=== PATIENT | male | born 1980 | race Hispanic/Latino ===

== ENCOUNTER 2017-05-01 19:04 | Inpatient (IN) ==
[2017-05-01] MEDS ORDERED: MORPHINE IV ONE (20:07)
[2017-05-01] MEDS ORDERED: ZOFRAN IV ONE (20:08)
[2017-05-01] MEDS ORDERED: TORADOL IV ONE (20:08)
[2017-05-01 20:21] LABS: MANUAL DIFF NEEDED? NO
[2017-05-01 20:26] LABS: BASO% 0.3 % (0.0-0.8); EOS# 0.26 X1000 (0.0-0.7); HEMATOCRIT 41.3 % (42.0-52.0); IMM GRAN# 0.01 X1000 (0.0-0.04); IMM GRAN% 0.1 % (0.0-0.5); LYMPH# 3.36 X1000 (1.2-3.4); LYMPH% 38.2 % (20.5-51.1); MCH 27.2 PG (27-31); MCHC 33.9 g/dL (33-37); MCV 80.4 FL (81-99); MONO# 0.62 X1000 (0.11-0.59); MONO% 7.1 % (1.7-9.3); MPV 9.6 FL (7.4-10.4); NEUT% 51.3 % (42.2-75.2); PLT 309 X1000 (130-400); RBC 5.14 XMIL (4.7-6.1)
--- NOTE | 2017-05-01 20:52 | Diag Imaging Result Doc PS360 ---
RENAL STONE SEARCH - 05/01/2017 INDICATION: left sided pain TECHNIQUE: A CT dose reduction protocol was used. COMPARISON: None FINDINGS: No radiodense renal stones. No hydronephrosis or hydroureter. There is some hazy edema of the omentum at the left mid abdomen. There are also some slightly enlarged mesenteric lymph nodes in the left upper quadrant. These are mostly in the gastrosplenic ligament. Normal appendix. No bowel obstruction. Urinary bladder, prostate, and rectum are normal. Bony structures are intact. IMPRESSION: Mild omental inflammation in the left abdomen along with some mesenteric adenopathy. Compatible with mesenteric panniculitis. Otherwise negative. Electronically signed by Jesus Morales 05/01/2017 8:50 PM
[2017-05-01 20:53] LABS: AGAP 10; ALBUMIN 4.1 g/dL (3.5-5.0); ALKALINE PHOSPHATASE 91 U/L (32-122); BUN 17 mg/dL (8-22); CHLORIDE 105 mmol/L (98-107); COSMO 282; GOT 32 U/L (10-34); GPT 29 U/L (10-44); LIPASE 39 U/L (13-60); POTASSIUM 3.6 mmol/L (3.5-5.1); SODIUM 140 mmol/L (136-145); TCO2 25 mmol/L (25-35); TOTAL PROTEIN 7.3 g/dL (6.3-8.3)
[2017-05-01] MEDS ORDERED: MORPHINE IV PRN (21:32)
[2017-05-01] MEDS ORDERED: TORADOL IV PRN (21:32)
--- NOTE | 2017-05-01 21:32 | PROVIDER DOCUMENTATION ---
This chart was entered by Sarah Smith Scribe, acting as scribe for Raymond Ponce MD. HPI-Abdominal Pain/GI Problem - General Chief Complaint: Abdominal Pain Stated Complaint: ABD PAIN Time Seen by Provider: 05/01/17 19:58 Source: patient Allergies/Adverse Reactions: Patient Allergies Allergy/AdvReac Type Severity Reaction Status Date / Time No Known Allergies Allergy Verified 05/01/17 19:55 Home Medications: Home Medication List Medication Instructions Recorded Confirmed Last Taken Type NK [No Home Medications] 05/01/17 05/01/17 Unknown History - History of Present Illness-ABD Nature of Presenting Problems: 37 Y/O M presents to ER with the complain of abd pain X1 day. pt state that its been worse then yesterday and mostly in the L side of the abd. pt states that he feels nausea but has not vomit. pt states that he has not tries anything for the pain. pt denies any other symptoms. Abdominal Pain Onset Location: reports: LLQ Pain Radiation: reports: back Onset/Duration: reports: 24 hours ago Timing: reports: still present Review of Systems - Adult - REVIEW OF SYSTEMS - ADULT Constitutional: reports: no symptoms reported Eyes: reports: no symptoms reported Ears, Nose, Mouth & Throat: reports: no symptoms reported Cardiovascular: reports: no symptoms reported Respiratory: reports: no symptoms reported Gastrointestinal: reports: abdominal pain (L side), nausea. denies: diarrhea, vomiting Genitourinary: denies: dysuria, hematuria Musculoskeletal: reports: back pain. denies: neck pain Integumentary: reports: no symptoms reported Neurological: reports: no symptoms reported Psychiatric: reports: no symptoms reported Endocrine: reports: no symptoms reported Hematologic/Lymphatic: reports: no symptoms reported Allergic/Immunologic: reports: no symptoms reported All Other Systems: Reviewed and Negative Past History - Adult - PAST MEDICAL HISTORY-ADULT Review of Records: reports: Old Records Reviewed, Nursing Assessment Review - IMMUNIZATION STATUS Childhood Immunizations: See Nurse Assessment Flu Vaccine: See Nurse Assessment Physical Exam-General - PHYSICAL EXAM-ADULT Initial Vital Signs Reviewed: Yes - CONSTITUTIONAL General Appearance: appears well, alert - EYES Eyes: PERRL/EOMI, pink conjunctivae - HEAD, EARS, NOSE, MOUTH & THROAT HENMT: normocephalic/atraumatic, moist mucous membranes - NECK Neck: non-tender, full range of motion, supple - RESPIRATORY Respiratory: lungs clear, normal breath sounds - CARDIOVASCULAR Cardiovascular: normal peripheral pulses, regular rate, rhythm - GASTROINTESTINAL (ABDOMEN) Abdominal Exam: soft, tenderness (LLQ) - MUSCULOSKELETAL Back Exam: no CVA tenderness, no vertebral tenderness Extremity: normal range of motion, non-tender, normal gait - SKIN Integumentary: normal color, normal turgor, warm/dry - NEUROLOGIC Neurologic: grossly normal, no motor/sensory deficits - PSYCHIATRIC Psych/Mental Status: normal mood/affect, normal thought content, normal thought process, oriented x 3 Progress - PLAN OF CARE/RESULTS Progress/Plan/Lab Results: Vital Signs - 8 hr 05/01/17 19:51 Temperature 98.5 F Pulse Rate 61 Respiratory Rate 18 Blood Pressure 131/71 O2 Sat by Pulse Oximetry 100 Result Diagrams: 05/01/17 20:00 05/01/17 20:00 - REASSESSMENT Reassessment #1 Time Reassessed: 21:30 (pain is now mild) Status: improving - CT/MRI 1 CT Study: Renal Stone Impression: See EMR Report CT Results: mild omental inflamation to L abd with some mesenteric adenopathy - CONSULTS/PCP/HOSPITALIST Notification #1 *Consult/PCP/Hospitalist*: Dr. Tran Time Discussed: 21:22 Reason/Comments: dicussed about pt Consult Disposition: Admit Departure - Departure Date of Disposition Decision: 05/01/17 Time of Disposition Decision: 21:31 DIAGNOSIS: Mesenteric panniculitis Disposition: ADMITTED INPATIENT 09 Certified Medical Emergency: Emergent Condition: Good Referrals and Follow-Ups: None,PCP [Primary Care Provider] - - Critical Care Note This patient required my direct & personal management of CC.: No This chart was documented by the indicated scribe, (Sarah Smith Scribe) and accurately reflects the services I performed and decisions made by me, Raymond Ponce MD, as attested by the provider's signature.
[2017-05-01 22:05] LABS: BILIRUBIN URINE NEGATIVE (NEGATIVE); BLOOD URINE NEGATIVE (NEGATIVE); CLARITY VERY CLOUDY (CLEAR); COLOR YELLOW; GLUCOSE URINE NEGATIVE (NEGATIVE); LEUKOCYTES URINE NEGATIVE (NEGATIVE); NITRITE URINE NEGATIVE (NEGATIVE); PROTEIN URINE NEGATIVE (NEGATIVE); SP GRAVITY URINE 1.015; UROBILINOGEN URINE NORMAL
[2017-05-01 22:16] LABS: URINE CULTURE PL NEEDED? YES; URINE EPITHELIAL CELLS <10 /HPF (<10); URINE SOURCE CLEAN CATCH; URINE WBC NS /HPF (<10)
[2017-05-02] MEDS ORDERED: MORPHINE IV PRN (08:11)
[2017-05-02] MEDS ORDERED: TORADOL IV PRN (08:12)
[2017-05-02] MEDS ORDERED: FLAGYL 500 MG/NS 500 MG/100 ML IVPB IV SCH (11:00)
[2017-05-02] MEDS ORDERED: LEVAQUIN 500 MG/D5W 500 MG/100 ML IVPB IV SCH (12:00)
--- NOTE | 2017-05-02 14:23 | HISTORY AND PHYSICAL ---
PRIMARY CARE PHYSICIAN: None. CHIEF COMPLAINT: Abdominal pain x1 day in his left lower quadrant with nausea. HISTORY OF PRESENTING ILLNESS: This is a 37-year-old male who presented to [facility] ER with complaints of left lower quadrant abdominal pain with nausea x1 day. Denied any vomiting, constipation or diarrhea. He had a renal CT that showed mild omental inflammation in the left abdomen along with some mesenteric adenopathy compatible with a mesenteric panniculitis. Otherwise negative. His labs were unremarkable. In the emergency room, he was given Toradol and morphine. He states this morning that his abdominal pain is improved since having the pain medication. Denies any nausea at this time and was admitted for further evaluation and treatment. PAST MEDICAL HISTORY: None. PAST SURGICAL HISTORY: None. FAMILY HISTORY: Noncontributory. SOCIAL HISTORY: Currently lives with family. Denies any tobacco, alcohol, or illicit drug use. ALLERGIES: He has no known drug allergies. HOME MEDICATIONS: He does not take any medications on a routine basis. LABORATORY DATA: Showed a white blood cell count of 8.79, hemoglobin 14, hematocrit 41.3, platelets 309,000. Sodium 140, potassium 3.6, chloride 105, CO2 25, BUN of 17. Creatinine 0.8, glucose 110. Lipase of 39. Urinalysis was negative except for 4+ bacteria. IMAGING: CT renal showed an impression of mild omental inflammation in the left abdomen, along with some mesenteric adenopathy compatible with mesenteric panniculitis, otherwise, negative. REVIEW OF SYSTEMS: He denied any fever, chills, blurred vision, dizziness, chest pain, coughing, shortness of breath. He is positive for left lower quadrant abdominal pain and nausea. Denied any vomiting, constipation, diarrhea, burning or hurting with urination. PHYSICAL EXAMINATION: VITAL SIGNS: On arrival, he had a temperature of 98.5 degrees, pulse 61, respirations 18, blood pressure 131/71, saturating 100% on room air. GENERAL: This is a 37-year-old male, who is lying in the bed and answers questions appropriately. HEENT: Normocephalic and atraumatic. Pupils are equal, round, reactive to light. Extraocular movements are intact. Oropharynx and nares are clear. NECK: Supple. LUNGS: Clear to auscultation bilaterally with equal lung expansion and chest wall movement. HEART: With regular rate and rhythm. No murmurs, rubs, or gallops. ABDOMEN: Soft. There is some mild tenderness to the left lower quadrant. Bowel sounds are present x4 quadrants. EXTREMITIES: No clubbing, cyanosis, or edema. NEUROLOGICAL: The cranial nerves 2-12 appear grossly intact. ASSESSMENT: 1. Left lower quadrant abdominal pain. 2. Mesenteric panniculitis. PLAN: He was admitted to the medical unit. Placed on a regular diet. We are obtaining a urine culture. We will start him on some Levaquin 500 mg IV daily and Flagyl 500 mg IV q.8 and follow. We will continue his Toradol 15 mg IV q.4 hours p.r.n., and morphine 2 mg IV q.2 hours p.r.n. Dictated by KARSON Mcelroy for Zay Martines MD cc: KARSON Mcelroy MD pt examined, agree with above APENOT MTDD
[2017-05-02 15:43] VITALS: BP 107/77
--- NOTE | 2017-05-04 05:19 | DISCHARGE SUMMARY ---
ADMISSION DATE: 05/01/2017 DISCHARGE DATE: 05/02/2017 PRIMARY CARE PHYSICIAN: None. ADMISSION DIAGNOSES: 1. Left lower quadrant abdominal pain. 2. Mesenteric panniculitis. DISCHARGE DIAGNOSES: 1. Left lower quadrant abdominal pain, improved. 2. Mesenteric panniculitis. SUMMARY OF FINDINGS: A 37-year-old, male who presented to the ER with complaints of left lower quadrant abdominal pain with nausea x1 day. States that his pain is much improved today. It was felt that he could safely be discharged home per attending. DISCHARGE MEDICATIONS: He was given Cipro 500 mg p.o. b.i.d. #14 with no refills and Flagyl 500 mg p.o. t.i.d. #21 with no refills. DISCHARGE INSTRUCTIONS: He was given the number to the [facility] to follow up. All discharge instructions were reviewed with the patient and he verbalized understanding. A 35 minute discharge. Dictated by KARSON Mcelroy for Zay Martines MD cc: KARSON Mcelroy MD
== END 2017-05-02 18:13 | disposition home or self-care (01) ==
LOC: P.ED 19:04 → SUATTDRO 22:08 → P.MEDSURG 22:08
PROVIDERS: ATTEND Internal Medicine